=== PATIENT | female | born 1995 ===

== ENCOUNTER 2016-12-25 11:36 | Observation (INO) | payer BC ==
[2016-12-25 11:51] VITALS: BMI 34.9
[2016-12-25 11:52] VITALS: RESP 18; TEMP 98.6
[2016-12-25 12:58] LABS: ADD MANUAL DIFF? NO
[2016-12-25 12:59] LABS: BASO # 0.02 K/mm3 (0.0-2.0); BASO % 0.2 % (0.0-3.0); EOS # 0.1 (0.0-0.7); EOS % 0.5 % (1.5-5.0); GRAN # 6.54 (1.4-6.5); GRAN % 69.9 % (50.0-68.0); HEMATOCRIT 34.7 % (36.0-48.0); LYMPH # 2.1 (1.2-3.4); LYMPH % 22.7 % (22.0-35.0); MEAN CELL VOLUME 87.2 fL (80.0-105.0); MEAN CORPUSCULAR HEMOGLOBIN 31.2 pg (25.0-35.0); MEAN CORPUSCULAR HGB CONC 35.7 g/dl (31.0-37.0); MEAN PLATELET VOLUME 11.3 fl (7.0-11.0); MONO # 0.6 (0.1-0.6); MONO % 6.7 % (1.0-6.0); PLATELET COUNT 216 10^3/uL (120.0-450.0); RED CELL DISTRIBUTION WIDTH 12.3 % (11.5-14.5); WHITE BLOOD COUNT 9.4 10^3/ul (4.5-11.0)
[2016-12-25 13:02] LABS: URINE BILIRUBIN NEGATIVE (NEGATIVE); URINE BLOOD MODERATE (NEGATIVE); URINE GLUCOSE (UA) NEGATIVE (NEGATIVE); URINE KETONE NEGATIVE (NEGATIVE); URINE LEUKOCYTE ESTERASE NEGATIVE Leu/uL (NEGATIVE); URINE PROTEIN TRACE mg/dL (<30 mg/dL)
[2016-12-25 13:05] LABS: URINE APPEARANCE CLEAR (CLEAR); URINE COLOR YELLOW (YELLOW)
[2016-12-25 13:11] LABS: ALB/GLOB RATIO 1.1 (1.1-1.8); ALKALINE PHOSPHATASE 55 U/L (38-133); ALT/SGPT 31 U/L (7-56); AST/SGOT 18 U/L (15-39); BILIRUBIN,TOTAL 0.5 mg/dL (0.2-1.3); BLOOD UREA NITROGEN 11 mg/dL (7-21); CALCIUM 9.2 mg/dL (8.4-10.5); CARBON DIOXIDE 21 mmol/L (21-33); CHLORIDE 102 mmol/L (98-107); GFR AFRICAN-AMERICAN > 60; GLUCOSE,RANDOM 78 mg/dL (70-110); SODIUM 133 mmol/L (132-148); TOTAL PROTEIN 7.3 g/dL (5.8-8.3)
[2016-12-25 13:17] LABS: URINE BACTERIA FEW (NEG); URINE RBC 0 - 2 /hpf (0-2); URINE WBC 0 - 2 /hpf (0-6)
--- NOTE | 2016-12-25 13:32 | ED PDOC ---
Arrival/HPI - General Chief Complaint: Female Genitourinary Time Seen by Provider: 12/25/16 11:47 Historian: Patient - History of Present Illness Narrative History of Present Illness (Text): 12/25/16 13:29 Patient reports she is 13 wks and reports of 1 day history of mild lower abdominal crampy pain with vaginal spotting. Otherwise: (-) N/V, (-) fever, (-) urinary symptoms, (-) prior salpingitis, (-) prior ectopic . Has (+) care and (+) prior OB ultrasound - 3 days ago, unsure of the results. 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 HISTORY: 4 Para 1 AB 2 Past Medical History - Provider Review Nursing Documentation Reviewed: Yes - Infectious Disease Hx of Infectious Diseases: None - Tetanus Immunization Tetanus Immunization: Unknown - Past Medical History Past Medical History: No Previous - Cardiac Hx Cardiac Disorders: No - Pulmonary Hx Respiratory Disorders: No - Neurological Hx Neurological Disorder: No - HEENT Hx HEENT Disorder: No - Renal Hx Renal Disorder: No - Endocrine/Metabolic Hx Endocrine Disorders: No - Hematological/Oncological Hx Blood Disorders: No - Integumentary Hx Dermatological Disorder: No - Musculoskeletal/Rheumatological Hx Musculoskeletal Disorders: No - Gastrointestinal Hx Gastrointestinal Disorders: No - Genitourinary/Gynecological Hx Genitourinary Disorders: No - Psychiatric Hx Psychophysiologic Disorder: No Hx Substance Use: No - Surgical History Hx Appendectomy: Yes - Anesthesia Hx Anesthesia: Yes Hx Anesthesia Reactions: No Hx Malignant Hyperthermia: No Family/Social History - Physician Review Nursing Documentation Reviewed: Yes Family/Social History: No Known Family HX Smoking Status: Never Smoked Hx Alcohol Use: Yes Hx Substance Use: No Allergies/Home Meds Allergies/Adverse Reactions: Allergies No Known Allergies Allergy (Verified 12/25/16 11:51) Review of Systems - Review of Systems Constitutional: Normal. absent: Fatigue, Weight Change, Fevers Respiratory: Normal. absent: SOB, Cough, Sputum, Wheezing Cardiovascular: Normal. absent: Chest Pain, Palpitations, Edema Gastrointestinal: Normal, Abdominal Pain, Nausea (related to ). absent : Stool Changes, Appetite Changes Genitourinary Female: Normal, Vaginal Bleeding. absent: Dysuria, Frequency, Hematuria Skin: Normal. absent: Rash, Pruritis, Skin Lesions Physical Exam - Physical Exam Narrative Physical Exam (Text): 12/25/16 13:31 GENERAL APPEARANCE: Patient is awake, alert, oriented x 3, in no acute distress. SKIN: Warm, dry; (-) cyanosis. EYES: (-) conjunctival pallor. ENMT: Mucous membranes moist. NECK: (-) tenderness, (-) stiffness, (-) lymphadenopathy. CHEST AND RESPIRATORY: (-) rales, (-) rhonchi, (-) wheezes; breath sounds equal bilaterally. HEART AND CARDIOVASCULAR: (-) irregularity; (-) murmur, (-) gallop. ABDOMEN AND GI: Soft; (-) tenderness. EXTREMITIES: (-) deformity. NEURO AND PSYCH: Mental status as above; (-) focal findings. Vital Signs Temp Pulse Resp BP Pulse Ox 12/25/16 15:36 66 18 118/57 L 100 12/25/16 11:51 98.6 F 75 18 116/67 99 Medical Decision Making ED Course and Treatment: 12/25/16 13:32 21 yo F 13 weeks , complaining of mild lower abdominal crampy pain with vaginal spotting which started today. Plan: -- Labs -- IV fluids -- Urinalysis -- Placed in ED observation for further care and treatment -- Pelvic US - Lab Interpretations I have reviewed the lab results: Yes Interpretation: All labs normal - RAD Interpretation Narrative RAD Interpretations (Text): 12/25/16 15:56 Pelvic US: FINDINGS: Variable presentation. Circumferential and fundal Placenta. No evidence of abruption or previa Gestational age derived from LMP 13 weeks 2 days Gestational age derived from the following biometric parameters 13 weeks 6 days . Biparietal diameter 2.4 cm Head circumference9.1 cm Abdominal circumference 7.0 cm Femur length 1.2 cm Estimated weight 80.1 g Calculated cardiac rate 149 beats per min. Closed cervix measuring 4.7 cm Right ovary 3.3 x 3.6 cm. Contiguous simple cysts 1.8 x 1.6 cm and 2.1 x 3.1 cm Left ovary 3.4 x 2.8 cm IMPRESSION: Thirteen weeks 6 days live intrauterine gestation. HANNAH based on LMP: 06/30/2017 HANNAH based on biometry: 06/26/2017 [email or web address] ED OBSERVATION Date of observation admission: 12/25/16 Time of observation admission: 12:13 - Observation admission statement Patient is being placed in observation because:: Patient is 13 wks , abdominal pain and vaginal spotting, to r/o threatened . - Goals of Observation Goals of observation are:: To monitor patient's signs and symptoms. - Progress Note Progress Note: 12/25/16 14:55 Labs reviewed and are wnl. Patient has returned from US, results pending. On exam, patient is laying in bed in no acute distress, has no complaints at this time, reports no abdominal pain or vaginal bleeding. Abdomen remains soft and non-tender. 12/25/16 16:00 US results reviewed and is wnl. Patient is 13 weeks and 6 days. Type and screen pending. 12/25/16 16:40 Type and screen results reviewed. Patient still with no abdominal pain or significant vaginal bleeding at this time. Based on history, exam and diagnostic results plan will be for outpatient f/u with her OB. Patient states she fully agrees with and understands discharge instructions. States that she agrees with the plan and disposition. Verbalized and repeated discharge instructions and plan. I have given the patient opportunity to ask any additional questions. Follow up with OB in 1-2 days without fail. Return to the emergency room at any time for any new or worsening symptoms. - PA / FILLING MACHINE TENDER / Resident Statement MD/DO has reviewed & agrees with the documentation as recorded. Disposition/Present on Arrival - Present on Arrival Any Indicators Present on Arrival: No History of DVT/PE: No History of Uncontrolled Diabetes: No Urinary Catheter: No History of Decub. Ulcer: No History Surgical Site Infection Following: None - Disposition Have Diagnosis and Disposition been Completed?: Yes Diagnosis: Threatened Disposition: HOME/ ROUTINE Disposition Time: 12:13 (Patient placed in ED observation.) Patient Plan: Discharge Patient Problems: Current Active Problems Problem Status Onset Threatened Acute Condition: STABLE
--- NOTE | 2016-12-25 15:20 | US ---
PROCEDURE: ultrasound HISTORY: 13 wks , vag bleeding COMPARISON: None. TECHNIQUE: Standard protocol for this study/examination. FINDINGS: Variable presentation. Circumferential and fundal Placenta. No evidence of abruption or previa Gestational age derived from LMP 13 weeks 2 days Gestational age derived from the following biometric parameters 13 weeks 6 days . Biparietal diameter 2.4 cm Head circumference9.1 cm Abdominal circumference 7.0 cm Femur length 1.2 cm Estimated weight 80.1 g Calculated cardiac rate 149 beats per min. Closed cervix measuring 4.7 cm Right ovary 3.3 x 3.6 cm. Contiguous simple cysts 1.8 x 1.6 cm and 2.1 x 3.1 cm Left ovary 3.4 x 2.8 cm IMPRESSION: Thirteen weeks 6 days live intrauterine gestation. HANNAH based on LMP: 06/30/2017 HANNAH based on biometry: 06/26/2017 [email or web address]
[2016-12-25 16:01] VITALS: BP 118/57; PULSE 66; O2SAT 100
== END 2016-12-25 16:57 | disposition home or self-care (01) ==
LOC: ED 11:36 → EROBSV 12:13
PROVIDERS: ADMIT Student in an Organized Health Care Education/Training Program; ATTEND Student in an Organized Health Care Education/Training Program
DX: O20.0 Threatened abortion (principal); Z3A.13 13 weeks gestation of pregnancy

== ENCOUNTER 2018-01-16 02:01 | Emergency (ER) | payer BC, MEDICAID, OTHER ==
[2018-01-16 02:12] VITALS: BMI 29.2
[2018-01-16 02:24] VITALS: RESP 18
[2018-01-16] MEDS ORDERED: Tetracaine 0.5% Ophth 2 ML BOTTLE OS STA (02:40)
--- NOTE | 2018-01-16 02:49 | ED PDOC ---
Arrival/HPI - General Chief Complaint: Eye Problem Time Seen by Provider: 01/16/18 02:20 Historian: Patient - History of Present Illness Narrative History of Present Illness (Text): 01/16/18 02:44 A 22 year old female, with no significant past medical history, presents to the emergency department complaining of left eye irritation due to metal being stuck in her eye. 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 She states that she was instructed to flush out her eye by a director medical surgical at her job. However, she still felt the discomfort since then. She states that today when she looked in the mirror, she noticed the piece of metal in her left eye. The patient also notes that since then, she has been experiencing more frequent headaches. The patient denies fevers, chills, dizziness, vision changes , chest pain, neck pain, back pain, abdominal pain, nausea, vomiting, diarrhea, or any other complaints. Time/Duration: Other (Today) Symptom Onset: Sudden Symptom Course: Unchanged Activities at Onset: Rest, Light Context: Home Past Medical History - Provider Review Nursing Documentation Reviewed: Yes - Infectious Disease Hx of Infectious Diseases: None - Tetanus Immunization Tetanus Immunization: Unknown - Past Medical History Past Medical History: No Previous - Cardiac Hx Cardiac Disorders: No Hx Hypertension: No - Pulmonary Hx Respiratory Disorders: No - Neurological Hx Neurological Disorder: No - HEENT Hx HEENT Disorder: No - Renal Hx Renal Disorder: No - Endocrine/Metabolic Hx Endocrine Disorders: No - Hematological/Oncological Hx Blood Disorders: No - Integumentary Hx Dermatological Disorder: No - Musculoskeletal/Rheumatological Hx Musculoskeletal Disorders: No - Gastrointestinal Hx Gastrointestinal Disorders: No - Genitourinary/Gynecological Hx Genitourinary Disorders: No - Psychiatric Hx Depression: No Hx Substance Use: No - Surgical History Hx Appendectomy: Yes - Anesthesia Hx Anesthesia: Yes Hx Anesthesia Reactions: No Hx Malignant Hyperthermia: No Family/Social History - Physician Review Nursing Documentation Reviewed: Yes Family/Social History: No Known Family HX Smoking Status: Never Smoked Hx Alcohol Use: Yes Hx Substance Use: No Allergies/Home Meds Allergies/Adverse Reactions: Allergies No Known Allergies Allergy (Verified 01/16/18 02:12) Review of Systems - Physician Review All systems were reviewed & negative as marked: Yes - Review of Systems Constitutional: absent: Fevers, Night Sweats Eyes: Other (Metal in left eye. Irritation. ). absent: Vision Changes Respiratory: absent: SOB Cardiovascular: absent: Chest Pain Gastrointestinal: absent: Abdominal Pain, Diarrhea, Nausea, Vomiting Musculoskeletal: absent: Back Pain, Neck Pain Neurological: Headache. absent: Dizziness Physical Exam Vital Signs Reviewed: Yes Vital Signs Temp Pulse Resp BP Pulse Ox 01/16/18 05:00 98 F 63 18 123/60 99 01/16/18 04:34 98 F 62 18 121/62 99 01/16/18 02:23 98.0 F 60 18 122/63 98 Temperature: Afebrile Blood Pressure: Normal Pulse: Regular Respiratory Rate: Normal Appearance: Positive for: Well-Appearing, Non-Toxic, Comfortable Pain Distress: None Mental Status: Positive for: Alert and Oriented X 3 - Systems Exam Head: Present: Atraumatic, Normocephalic Pupils: Present: PERRL Extroacular Muscles: Present: EOMI Conjunctiva: Present: Normal Mouth: Present: Moist Mucous Membranes Neck: Present: Normal Range of Motion Respiratory/Chest: Present: Clear to Auscultation, Good Air Exchange. No: Respiratory Distress, Accessory Muscle Use Cardiovascular: Present: Regular Rate and Rhythm, Normal S1, S2. No: Murmurs Abdomen: No: Tenderness, Distention, Peritoneal Signs Back: Present: Normal Inspection Upper Extremity: Present: Normal Inspection. No: Cyanosis, Edema Lower Extremity: Present: Normal Inspection. No: Edema Neurological: Present: GCS=15, CN II-XII Intact, Speech Normal Skin: Present: Warm, Dry, Normal Color. No: Rashes Psychiatric: Present: Alert, Oriented x 3, Normal Insight, Normal Concentration Medical Decision Making ED Course and Treatment: 01/16/18 02:51 Impression: A 22 year old female presents to the emergency department for a complaint of left eye pain due to a piece of metal that has been in her eye for the past 2 weeks. Plan: -- Reassess and disposition Progress Notes: 01/16/18 06:33 unable to retrieve foreign body in eye, at 2 o clock position. attempted moiist guaze and 26 g needle with slit lamp. refuses for me tod iscuss with optho in er , states she will follow up outpt. with optho - Medication Orders Current Medication Orders: Discontinued Medications Tetracaine HCl (Tetracaine 0.5% Ophth Soln) 1 drop OS STAT STA Stop: 01/16/18 02:41 Last Admin: 01/16/18 02:56 Dose: 1 drop - Scribe Statement The provider has reviewed the documentation as recorded by the Scribe Lydia Washington Provider Scribe Attestation: All medical record entries made by the Scribe were at my direction and personally dictated by me. I have reviewed the chart and agree that the record accurately reflects my personal performance of the history, physical exam, medical decision making, and the department course for this patient. I have also personally directed, reviewed, and agree with the discharge instructions and disposition. Disposition/Present on Arrival - Present on Arrival Any Indicators Present on Arrival: No History of DVT/PE: No History of Uncontrolled Diabetes: No Urinary Catheter: No History of Decub. Ulcer: No History Surgical Site Infection Following: None - Disposition Have Diagnosis and Disposition been Completed?: Yes Diagnosis: Corneal foreign body Disposition: HOME/ ROUTINE Disposition Time: 05:00 Condition: STABLE Discharge Instructions (ExitCare): Foreign Body in Eye Print Language: ALBANIAN Additional Instructions: please follow up with optho. return to er with worsening symptoms or concerns. Prescriptions: Polymyxin/Trimethoprim Sulfate [Polytrim Ophth Soln] 1 drop LEFTEYE Q4 #1 bottle Referrals: Alejo Villela MD [Staff Provider] - Follow up with primary Forms: [facility] (Latvian)
[2018-01-16 04:40] VITALS: TEMP 98; O2SAT 99
[2018-01-16 05:01] VITALS: BP 123/60; PULSE 63
== END 2018-01-16 05:00 | disposition home or self-care (01) ==
LOC: ED 02:01
DX: T15.02XA Foreign body in cornea, left eye, initial encounter (principal); W22.8XXA Striking against or struck by other objects, initial encounter; Y99.0 Civilian activity done for income or pay